=== PATIENT | female | born 1990 | race Two or more races ===

== ENCOUNTER 2018-01-25 08:08 | Outpatient (CLI) | payer OTHER | END 2018-01-25 08:15 | disposition home or self-care (01) | LOC: MAMO-SONO 08:08 | DX: Z12.31 Encounter for screening mammogram for malignant neoplasm of breast (principal); E03.8 Other specified hypothyroidism ==

== ENCOUNTER → 2019-01-10 | Outpatient (CLI) | payer OTHER | END | disposition home or self-care (01) | LOC: MAMO-SONO 08:15 → SONOGRAMA 10:21 | DX: N64.52 Nipple discharge (principal); N60.19 Diffuse cystic mastopathy of unspecified breast ==